=== PATIENT | female | born 2000 | race Two or more races ===

== ENCOUNTER 2018-06-03 19:58 | Emergency (ER) | payer SELFPAY ==
[~2018-06-03] VITALS: Ht 167.6 cm; Wt 86.2 kg
[2018-06-03 20:00] VITALS: BP 156/95
[2018-06-03] MEDS ORDERED: HYDROcodone/APAP 5/325MG 1 TAB TABLET PO ONE (20:45)
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
[2018-06-04] MEDS ORDERED: CYCL10TA2 PO (00:14)
[2018-06-04] MEDS ORDERED: IBUP-1007 PO (00:14)
[2018-06-04] MEDS ORDERED: HYDR-971 PO (00:14)
--- NOTE | 2018-06-04 08:53 | RAD ---
Exam : Lumbar spine 06/04/2018. Comparison: None. Indication: Pain. Findings: 3 views of the lumbar spine demonstrate no acute fracture or subluxation. There are five lumbar type vertebral bodies. The alignment is within normal limits. The vertebral bodies demonstrate normal height. Facet arthropathy is noted. The intervertebral disc spaces are well maintained. Impression: Mild facet arthropathy without evidence for spondylolisthesis. Electronically signed by: Nickie Lowe MD (06/04/2018 8:50 AM) [id number]
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
== END 2018-06-04 00:35 | disposition home or self-care (01) ==
LOC: ER 19:58
DX: R07.89 Other chest pain (principal); M54.2 Cervicalgia; M54.5 Low back pain; R42 Dizziness and giddiness; R55 Syncope and collapse; V43.94XA Unspecified car occupant injured in collision with van in traffic accident, initial encounter; Y93.89 Activity, other specified; Y92.410 Unspecified street and highway as the place of occurrence of the external cause; Y99.8 Other external cause status
CPT/HCPCS: 70450; 71045; 72100; 72125; 99284

== ENCOUNTER 2019-09-30 18:56 | Emergency (ER) | payer SELFPAY ==
[~2019-09-30] VITALS: Ht 165.1 cm; Wt 86.2 kg
[~2019-09-30 18:56] MED LIST: CYCL10TA2 PO; HYDR-3164 PO; IBUP-1007 PO
[2019-09-30 19:12] VITALS: BP 136/82
--- NOTE | 2019-09-30 19:44 | PHYS DOC ---
Past Medical History Past Medical History: No Pertinent History (ZAYNAB KANG APRN) Past Surgical History: Cholecystectomy (ZAYNAB KANG APRN) Alcohol Use: Occasionally Drug Use: None (ZAYNAB KANG APRN) Attending Signature I have participated in the care of this patient and I have reviewed and agree with all pertinent clinical information above including history, exam, and recommendations. (MELINA MCMAHAN MD) Adult General Chief Complaint Chief Complaint: FLU SYMPTOM HPI HPI Patient is a 19 year old female who presents with headache, loss of appetite, nausea, vomiting, sore throat, runny nose, cough that started 2 days ago. Patient has been able to keep fluids down at home. (ZAYNAB KANG APRN) Review of Systems Review of Systems Constitutional: Reports fever or chills and body aches. Eyes: Denies change in visual acuity, redness, or eye pain [] HENT: Reports nasal congestion, sore throat, and runny nose. Respiratory: Reports cough. Denies shortness of breath. Cardiovascular: No additional information not addressed in HPI [] GI: Reports nausea and vomiting. Denies abdominal pain, bloody stools or diarrhea [] : Denies dysuria or hematuria [] Musculoskeletal: Denies back pain or joint pain [] Integument: Denies rash or skin lesions [] Neurologic: Reports headache, denies focal weakness or sensory changes [] Endocrine: Denies polyuria or polydipsia [] Complete systems were reviewed and found to be within normal limits, except as documented in this note. (ZAYNAB KANG APRN) Current Medications Current Medications Current Medications Medications (Trade) Dose Ordered Sig/Wiliam Start Time Stop Time Status Last Admin Dose Admin Acetaminophen (Tylenol) 1,000 mg 1X STAT 09/30/19 20:13 09/30/19 20:17 DC 09/30/19 20:19 1,000 MG Dexamethasone (Decadron) 10 mg 1X STAT 09/30/19 20:09 09/30/19 20:11 DC 09/30/19 20:20 10 MG (MELINA MCMAHAN MD) Allergies Allergies Allergies Coded Allergies Type Severity Reaction Last Updated Verified No Known Drug Allergies 06/03/18 No (MELINA MCMAHAN MD) Physical Exam Physical Exam Constitutional: Well developed, well nourished, no acute distress, non-toxic appearance. [] HENT: Normocephalic, atraumatic, bilateral external ears normal, bilateral tympanic membranes are pearly [place], oropharynx moist, no oral exudates, nose turbinates are inflamed. Eyes: PERRLA, EOMI, conjunctiva normal, no discharge. [] Neck: Normal range of motion, no tenderness, supple, no stridor. [] Cardiovascular:Heart rate regular rhythm, no murmur [] Lungs & Thorax: Bilateral breath sounds clear to auscultation [] Abdomen: Bowel sounds normal, soft, no tenderness, no masses, no pulsatile masses. [] Skin: Warm, dry, no erythema, no rash. [] Neurologic: Alert and oriented X 3, normal motor function, normal sensory function, no focal deficits noted. [] Psychologic: Affect normal, judgement normal, mood normal. [] (ZAYNAB KANG APRN) Current Patient Data Vital Signs Vital Signs Date Time Temp Pulse Resp B/P (MAP) Pulse Ox O2 Delivery O2 Flow Rate FiO2 09/30/19 19:12 103.0 132 18 136/82 (100) 99 Room Air 103.0 (MELINA MCMAHAN MD) EKG EKG [] (ZAYNAB KANG APRN) Radiology/Procedures Radiology/Procedures [] (ZAYNAB KANG APRN) Course & Med Decision Making Course & Med Decision Making Pertinent Labs and Imaging studies reviewed. (See chart for details) MyThe patient appears to have the Flu clinically. Discussed with patient the importance of drinking plenty of fluids. I also discussed the importance of rest. It was discussed with the patient that she is contagious and to stay away from others until it has been a week since the start of her symptoms. Discussed with the patient that she can take Zyrtec per label instructions for runny nose. Also discussed the proper control of fever by rotating Tylenol and Ibuprofen at home. A medical screening exam was performed on this patient and the patient does not appear to be having a medical emergency. Her symptoms are not of sufficient severity and within reasonable medical probability it is unlikely the absence of immediate medical attention would result in placing the health of the individual (or, with respect to a woman, the health of the woman or her unborn child) in serious jeopardy, serious impairment to bodily functions, or serious dysfunction of any bodily organ or part. If , the patient is not in labor (ZAYNAB KANG APRN) Dragon Disclaimer Dragon Disclaimer This electronic medical record was generated, in whole or in part, using a voice recognition dictation system. (ZAYNAB KANG APRN) Departure Departure Impression: Primary Impression: Viral syndrome Disposition: 01 HOME, SELF-CARE Condition: STABLE Referrals: NO PCP (PCP) Patient Instructions: Viral Syndrome Additional Instructions: Thank you for visiting [facility]. We appreciate you trusting us with your care. If any additional problems come up don't hesitate to return to visit us. Please follow up with your primary care provider so they can plan additional care if needed and know about the problem that you had. If symptoms worsen come back to the Emergency Department. Any concerning symptoms that start such as chest pain, shortness of air, weakness or numbness on one side of the body, running high fevers or any other concerning symptoms return to the ER. Please fill your medications at any pharmacy and follow the prescription instructions. Please drink plenty of fluids. If unable to keep fluids down please return to ER. Please get Tylenol and Ibuprofen over the counter. Give each medication every 6 hours as directed by the medication labels. In order to utilize the peak of the medications stagger the medications to where the child is getting one of the medications every 3 hours. For example if you give Ibuprofen at 3 PM, you then give Tylenol at 6 PM and Ibuprofen again at 9 PM, and then Tylenol at midnight. Please get Zyrtec over the counter and take per label instructions for runny nose. Scripts Ondansetron (ONDANSETRON ODT) 4 Mg Tab.rapdis 1 TAB PO PRN Q6-8HRS PRN for NAUSEA, #16 TAB Prov: ZAYNAB KANG APRN 09/30/19 ZAYNAB KANG APRN Sep 30, 2019 19:44 MELINA MCMAHAN MD Oct 01, 2019 00:25
[2019-09-30] MEDS ORDERED: DEXAMETHASONE 4 MG TABLET PO STA (20:09)
[2019-09-30] MEDS ORDERED: ONDA4TAB12 PO (20:11)
[2019-09-30] MEDS ORDERED: ACETAMINOPHEN 500 MG TABLET PO STA (20:13)
== END 2019-09-30 20:26 | disposition home or self-care (01) ==
LOC: ER 18:56
DX: B34.9 Viral infection, unspecified (principal); R63.0 Anorexia; R09.89 Other specified symptoms and signs involving the circulatory and respiratory systems; R11.2 Nausea with vomiting, unspecified; Z90.49 Acquired absence of other specified parts of digestive tract
CPT/HCPCS: 99283; J8540

== ENCOUNTER 2020-02-24 03:10 | Emergency (ER) | payer SELFPAY ==
[~2020-02-24] VITALS: Ht 165.1 cm; Wt 88.6 kg
[~2020-02-24 03:10] MED LIST changes: +ONDA4TAB12 PO
[2020-02-24 03:28] LABS: CLARITY,URINE TURBID; COLOR,URINE RED
--- NOTE | 2020-02-24 03:32 | PHYS DOC ---
Past Medical History Past Medical History: No Pertinent History Past Surgical History: Cholecystectomy Smoking Status: Never Smoker Alcohol Use: Occasionally Drug Use: None General Adult EDM: Chief Complaint: VAGINAL BLEEDING HPI: HPI: Patient is a 19 year old female presenting to the ED with chief complaint of vaginal bleeding. Patient states that she tested positive for 2 days ago but today had some bleeding and so came into the ER immediately. Patient states that this would be her first . Patient denies any medical history. Patient also denies use of alcohol, drugs or smoking. Patient denies abdominal pain. Review of Systems: Review of Systems: Constitutional: Denies fever or chills. [] Eyes: Denies change in visual acuity. [] HENT: Denies nasal congestion or sore throat. [] Respiratory: Denies cough or shortness of breath. [] Cardiovascular: Denies chest pain or edema. [] GI: Denies abdominal pain, nausea, vomiting, bloody stools or diarrhea. [] : Complains of vaginal bleeding [] Neurologic: Denies headache, focal weakness or sensory changes. [] Heart Score: Risk Factors: Risk Factors: DM, Current or recent (<one month) smoker, HTN, HLP, family history of CAD, obesity. Risk Scores: Score 0 - 3: 2.5% MACE over next 6 weeks - Discharge Home Score 4 - 6: 20.3% MACE over next 6 weeks - Admit for Clinical Observation Score 7 - 10: 72.7% MACE over next 6 weeks - Early Invasive Strategies Allergies: Allergies: Allergies Coded Allergies Type Severity Reaction Last Updated Verified No Known Drug Allergies 06/03/18 No Physical Exam: PE: Constitutional: Well developed, well nourished, no acute distress, non-toxic appearance. [] HENT: Normocephalic, atraumatic Eyes: EOMI Neck: Normal range of motion, Supple Cardiovascular:Heart rate regular rhythm Lungs & Thorax: Bilateral breath sounds clear to auscultation [] Abdomen: Bowel sounds normal, soft, no tenderness Extremities: No tenderness, ROM intact Neurologic: Alert and oriented X 3 Current Patient Data: Labs: Laboratory Tests Test 02/24/20 03:22 POC Urine HCG, Qualitative Hcg positive (Negative) EKG: EKG: [] Radiology/Procedures: Radiology/Procedures: [] Impression: US IMPRESSION: 1. Gestational sac with yolk sac is identified without identification of discrete pole. Findings could be due to early , cannot exclude anembryonic . Follow-up with serial hCG and ultrasound in one week is recommended. 2. Trace free pelvic fluid. Course & Med Decision Making: Course & Med Decision Making Pertinent Labs reviewed. (See chart for details) Ordered labs, UA, urine , hCG level. Beta hCG level is 10,083 Labs otherwise within normal limits. Order ultrasound of the pelvis with transvaginal. IMPRESSION: 1. Gestational sac with yolk sac is identified without identification of discrete pole. Findings could be due to early , cannot exclude anembryonic . Follow-up with serial hCG and ultrasound in one week is recommended. 2. Trace free pelvic fluid. Discussed results and plan of care with patient. The ultrasound results could be due to early or due to possible miscarriage. Patient to follow-up with PCP and/or [employer] for serial hCG levels and ultrasound Discussed results and plan of care with patient. Patient is instructed to follow up with PCP in one to 2 days. Appropriate discharge instructions given to patient to return to the ED or to seek immediate medical evaluation. Patient is instructed to return to the ED if symptoms worsen or if any concerns. Dragon Disclaimer: Dragon Disclaimer: This electronic medical record was generated, in whole or in part, using a voice recognition dictation system. Departure Departure Impression: Primary Impression: Threatened miscarriage in early Additional Impression: Vaginal bleeding affecting early Referrals: NO PCP (PCP) ZAYNAB GROVES MD Please call Dr Groves's office today for appointment and repeat HCG level in 2 days. Patient Instructions: Abnormal Uterine Bleeding, Threatened Miscarriage Additional Instructions: Please have repeat beta-hCG level in 2 days and a repeat ultrasound in [address] Groves's office for an appointment today. Please return to the ED if symptoms worsen or if any concerns. Justicifation of Admission Dx: Justifications for Admission: Justification of Admission Dx: DAVID Justin DO Feb 24, 2020 03:32
[2020-02-24 03:35] LABS: BASO % 1 % (0-3); EOS # 0.1 x10^3/uL (0.0-0.7); EOS % 1 % (0-3); HEMATOCRIT 35.6 % (36.0-47.0); HEMOGLOBIN 11.6 g/dL (12.0-15.5); LYMPH # 2.5 x10^3/uL (1.0-4.8); LYMPH % 24 % (24-48); MEAN CORPUSCULAR HEMOGLOBIN 25 pg (25-35); MEAN CORPUSCULAR HGB CONC 33 g/dL (31-37); MEAN CORPUSCULAR VOLUME 77 fL (79-100); MONO # 0.7 x10^3/uL (0.0-1.1); MONO % 7 % (0-9); NEUT # 7.1 x10^3/uL (1.8-7.7); NEUT % 68 % (31-73); PLATELET COUNT 279 x10^3/uL (140-400); RED BLOOD COUNT 4.62 x10^6/uL (3.50-5.40); RED CELL DISTRIBUTION WIDTH 14.9 % (11.5-14.5); WHITE BLOOD COUNT 10.3 x10^3/uL (4.0-11.0)
[2020-02-24 03:44] LABS: BACTERIA,URINE 0 /HPF (0-FEW); RBC,URINE TNTC /HPF (0-2); SQUAMOUS EPITHELIAL CELL,UR FEW /LPF
[2020-02-24 04:10] LABS: CALCIUM 8.7 mg/dL (8.5-10.1); CREATININE 0.9 mg/dL (0.6-1.0); POTASSIUM 3.6 mmol/L (3.5-5.1)
[2020-02-24 04:16] LABS: ALBUMIN 3.3 g/dL (3.4-5.0); ALBUMIN/GLOBULIN RATIO 0.8 (1.0-1.7); TOTAL BILIRUBIN 0.2 mg/dL (0.2-1.0); TOTAL PROTEIN 7.2 g/dL (6.4-8.2)
--- NOTE | 2020-02-24 05:16 | RAD ---
CLINICAL HISTORY: Reason: vaginal bleeding / Spl. Instructions: / History: COMPARISON: None available. TECHNIQUE: Endovaginal sonography was performed FINDINGS: An intrauterine gestational sac is present. Embryo is not seen. Yolk sac is identified. There is no subchorionic fluid collection. Based on a mean sac diameter of 1.05 cm, the estimated gestational age is 5 weeks, 6 days. Estimated date of delivery is 10/20/2020. The right ovary measures 3.4 x 2.4 x 2.1 cm. The left ovary measures 2.5 x 2.1 x 1.3 cm. There is trace pelvic free fluid. IMPRESSION: 1. Gestational sac with yolk sac is identified without identification of discrete pole. Findings could be due to early , cannot exclude anembryonic . Follow-up with serial hCG and ultrasound in one week is recommended. 2. Trace free pelvic fluid. Electronically signed by: Fausto Samson MD (02/24/2020 5:13 AM) [facility]
[2020-02-24 05:30] VITALS: BP 131/79
== END 2020-02-24 05:30 | disposition home or self-care (01) ==
LOC: ER 03:10
DX: O20.0 Threatened abortion (principal); N93.9 Abnormal uterine and vaginal bleeding, unspecified; Z3A.01 Less than 8 weeks gestation of pregnancy; Z90.49 Acquired absence of other specified parts of digestive tract
CPT/HCPCS: 36415; 76817; 80053; 81001; 81025; 84702; 85025; 86901; 87086; 99284